=== PATIENT | female | born 1960 | race Caucasian/White ===

== ENCOUNTER 2017-02-24 18:46 | Emergency (ER) | payer BC ==
[~2017-02-24] VITALS: Ht 157.5 cm; Wt 140.6 kg
[~2017-02-24 18:46] MED LIST: BACTRIM DS TAB1 EACH PO; EFFEXOR XR75 MG PO; FLEXERIL PO; INDOMETHACIN 5050 M1 PO; KEFLEX500 M1 PO; NORCO 5-325 TA1 EACH PO; NORVASC5 MG PO; TOPROL XL25 MG PO
[2017-02-24] MEDS ORDERED: TRAMADOL 50 MG50 MG PO (19:41)
[2017-02-24] MEDS ORDERED: BACTRIM DS TAB1 EACH PO (19:41)
[2017-02-24 19:57] VITALS: BP 148/85
== END 2017-02-24 19:58 | disposition home or self-care (01) ==
LOC: ER 18:46
DX: L02.211 Cutaneous abscess of abdominal wall (principal); I10 Essential (primary) hypertension; F32.9 Major depressive disorder, single episode, unspecified; Z90.49 Acquired absence of other specified parts of digestive tract; Z91.048 Other nonmedicinal substance allergy status

== ENCOUNTER 2017-10-16 10:14 | Emergency (ER) | payer BC ==
[~2017-10-16] VITALS: Ht 157.5 cm; Wt 138.3 kg
[~2017-10-16 10:14] MED LIST changes: +ANTIVERT25 MG PO; +TRAMADOL 50 MG50 MG PO; +VITAMIN C500 M1 PO
[2017-10-16 10:26] VITALS: BP 140/81
== END 2017-10-16 11:44 | disposition home or self-care (01) ==
LOC: ER 10:14
DX: S91.012A Laceration without foreign body, left ankle, initial encounter (principal); W26.9XXA Contact with unspecified sharp object(s), initial encounter; Y93.89 Activity, other specified; Y92.89 Other specified places as the place of occurrence of the external cause; Y99.8 Other external cause status; I10 Essential (primary) hypertension; F32.9 Major depressive disorder, single episode, unspecified; Z90.49 Acquired absence of other specified parts of digestive tract

== ENCOUNTER 2020-08-13 12:35 | Emergency (ER) | payer BC ==
[~2020-08-13] VITALS: Ht 157.5 cm; Wt 131.5 kg
[2020-08-13 12:38] VITALS: BP 146/82
[2020-08-13] MEDS ORDERED: NORCO5 PO (14:21)
== END 2020-08-13 14:34 | disposition home or self-care (01) ==
LOC: ER 12:35
DX: M25.561 Pain in right knee (principal); M79.604 Pain in right leg; I10 Essential (primary) hypertension; E11.9 Type 2 diabetes mellitus without complications; Z79.899 Other long term (current) drug therapy; E78.5 Hyperlipidemia, unspecified; Z90.49 Acquired absence of other specified parts of digestive tract; X50.1XXA Overexertion from prolonged static or awkward postures, initial encounter; Y93.89 Activity, other specified; Y92.89 Other specified places as the place of occurrence of the external cause; Y99.9 Unspecified external cause status